=== PATIENT | female | born 1990 | race Caucasian/White ===

== ENCOUNTER 2020-08-06 02:23 | Emergency (ER) | payer SELFPAY ==
[2020-08-06 02:30] VITALS: BP 100/90; PULSE 133; RESP 18; TEMP 36.7; O2SAT 100
--- NOTE | 2020-08-06 02:45 | PC.NURSE ---
pt. denied having any ID when presented to [facility] consultant
[2020-08-06 02:58] LABS: Basophils Absolute Auto 0.1 K/mm3 (0.0-0.1); Basophils Percent Auto 0.4 % (0.2-1.2); Eosinophils Absolute Auto 0.1 K/mm3 (0-0.3); Eosinophils Percent Auto 0.4 % (0-4.4); Hematocrit 42.4 % (37.0-47.0); Hemoglobin 13.3 g/dL (12.0-15.0); Immature Granulocyte Absolute 0.08 K/mm3 (0.00-0.031); Immature Granulocyte Percent A 0.4 % (0-0.5); Lymphocytes Percent Auto 10.3 % (18.3-44.2); Mean Corpuscular HGB Conc 31.4 g/dl (32-36); Mean Corpuscular Hemoglobin 25.7 pg (26-34); Mean Corpuscular Volume 81.9 fl (80-100); Mean Platelet Volume 8.6 fl (7.4-10.4); Monocytes Absolute Auto 1.3 K/mm3 (0.1-0.6); Monocytes Percent Auto 7.2 % (2.6-8.5); Neutrophils Absolute Auto 15.1 K/mm3 (1.3-6.7); Neutrophils Percent Auto 81.3 % (45.5-73.1); Platelet Count Result 449 k/mm3 (150-375); Red Blood Count 5.18 M/mm3 (4.2-5.4); Red Cell Distribution Width 14.6 % (11.5-14.5); White Blood Count 18.5 K/mm3 (4.5-10.0)
[2020-08-06 03:09] LABS: Alanine Aminotransferase 46 U/L (4-35); Albumin Level 4.1 g/dL (3.5-5.1); Alkaline Phosphatase 134 U/L (38-126); Anion Gap 11 mmol/L (8-16); Aspartate Amino Transferase 49 U/L (14-36); Bilirubin,Total 0.6 mg/dL (0.2-1.3); Blood Urea Nitrogen 16 mg/dL (7-17); Calcium 9.4 mg/dL (8.4-10.2); Carbon Dioxide 27 mmol/L (22-30); Chloride 100 mmol/L (98-107); Estimated CRCL calculation 78 ml/min; Estimated Glomerular Filt Rate > 60; Glucose 130 mg/dL (65-105); Potassium 4.2 mmol/L (3.4-5.0); Sodium 138 mmol/L (137-145)
--- NOTE | 2020-08-06 03:31 | ED.GENADULT ---
HPI - General Adult General Chief complaint: Extremity Injury, Lower Stated complaint: R leg pain Time Seen by Provider: 08/06/20 02:36 History of Present Illness HPI narrative: Patient is a 30-year-old female who presents to the emergency department with chief complaint of right leg pain. Patient reports she has prior history of a blood clot in her lower extremities and had a surgical procedure on it in [place]. The patient states that tonight she started having pain in the area and noticed there was some swelling patient reported she had been off of her blood thinners for about 2 weeks and just recently restarted them. Patient denies chest pain denies shortness of breath denies fever or chills does report that she is a little bit of a headache. The patient denies any focal neurological deficits. Review of Systems Review of Systems: Narrative: CONSTITUTIONAL: Denies fever, chills, or sweats. EYES: Denies visual changes, redness, or discharge. ENT: Denies rhinorrhea, congestion, sore throat, or otalgia. CARDIOVASCULAR: Denies chest pain, palpitations, or edema. RESPIRATORY: Denies cough or dyspnea. GASTROINTESTINAL: Denies abdominal pain, nausea, vomiting, or diarrhea. GENITOURINARY: Denies dysuria or hematuria. SKIN: Denies rash or itching. MUSCULOSKELETAL: Denies back pain, joint pain, or myalgia. NEUROLOGIC: Denies headache, numbness, or weakness. PSYCHIATRIC: Denies anxiety or depression. A 10 system review of systems was completed on the patient and is negative except for what is stated in the HPI. Nursing and ancillary documentation was reviewed. PMFSH Comments Surgical procedure on the left lower extremity with clot removal Social history patient smokes cigarettes, the patient reports to methamphetamine use 4 days ago Exam Narrative: Exam Narrative: GENERAL: Well-appearing, well-nourished, and in no acute distress. HEAD: Normocephalic, atraumatic. EYES: PERRLA and EOMI. ENT: Nares clear, no rhinorrhea or epistaxis. Mucous membranes moist. NECK: Supple. CHEST: Clear to auscultation. No respiratory distress. HEART: Regular rate and rhythm. No murmur heard. Normal peripheral pulses. ABDOMEN: Soft, nontender, nondistended, normal active bowel sounds. EXTREMITIES: Normal range of motion. No edema. There are intact dorsalis pedis pulses in the right lower extremity. There is a scar on the lateral aspect of the right lower extremity inferior to the knee there is tenderness to palpation the skin there is no surrounding erythema there is no fluctuance. SKIN: Warm, dry, no rash. NEURO: No focal deficits. Alert and oriented x3. PSYCH: Normal mood and affect. Course Vital Signs Vital signs: Vital Signs Temperature 36.7 C 08/06/20 02:30 Pulse Rate 133 H 08/06/20 02:30 Respiratory Rate 18 08/06/20 02:30 Blood Pressure 100/90 08/06/20 02:30 Pulse Oximetry 100 08/06/20 02:30 Temperature 36.6 C 08/06/20 03:37 Pulse Rate 120 H 08/06/20 03:37 Respiratory Rate 16 08/06/20 03:37 Blood Pressure 103/62 08/06/20 03:37 Pulse Oximetry 100 08/06/20 03:37 Medical Decision Making Vital Signs Vital Signs: Vital Signs Temperature 36.7 C 08/06/20 02:30 Pulse Rate 133 H 08/06/20 02:30 Respiratory Rate 18 08/06/20 02:30 Blood Pressure 100/90 08/06/20 02:30 Pulse Oximetry 100 08/06/20 02:30 Temperature 36.6 C 08/06/20 03:37 Pulse Rate 120 H 08/06/20 03:37 Respiratory Rate 16 08/06/20 03:37 Blood Pressure 103/62 08/06/20 03:37 Pulse Oximetry 100 08/06/20 03:37 Lab Data Result diagrams: 08/06/20 02:49 08/06/20 02:49 Labs: Lab Results 08/06/20 08/06/20 08/06/20 Range/Units 02:49 02:49 02:49 WBC 18.5 H (4.5-10.0) K/mm3 RBC 5.18 (4.2-5.4) M/mm3 Hgb 13.3 (12.0-15.0) g/dL Hct 42.4 (37.0-47.0) % MCV 81.9 (80-100) fl MCH 25.7 L (26-34) pg MCHC 31.4 L (32-36) g/dl RDW 14.6 H (11.5-14.5) %
[2020-08-06 03:36] LABS: Prothrombin Time 13.9 Seconds (11.1-14.7)
[2020-08-06 03:37] VITALS: BP 103/62; PULSE 120; RESP 16; TEMP 36.6; O2SAT 100
[2020-08-06 03:37] LABS: Partial Thromboplastin Time 34.6 SECONDS (22.3-36.8)
[2020-08-06 03:39] LABS: D Dimer 0.68 ug/mL (<0.48)
[2020-08-06 04:06] VITALS: BP 110/74; PULSE 115; RESP 16; O2SAT 100
== END 2020-08-06 04:12 | disposition home or self-care (01) ==
PROVIDERS: Emergency Provider Emergency Medicine
DX: M79.604 Pain in right leg (principal); F17.210 Nicotine dependence, cigarettes, uncomplicated; Z79.01 Long term (current) use of anticoagulants
CPT/HCPCS: 36415; 80053; 85025; 85380; 85610; 85730; 99283

== ENCOUNTER 2020-08-06 12:15 | Outpatient (CLI) | payer SELFPAY ==
--- NOTE | ~2020-08-06 | US_ITS ---
EXAMINATION: US venous doppler LE RT DATE: 08/06/2020 12:54 INDICATION: Right lower limb pain TECHNIQUE: Grayscale ultrasound images without and with compression and Doppler ultrasound images of the right lower extremity veins were obtained. COMPARISON: None. FINDINGS: The visualized portions of right common femoral vein, profunda (deep) femoral vein, femoral vein, pop liteal vein, peroneal trunk, posterior tibial veins, peroneal veins, gastrocnemius vein and greater s aphenous vein outflow are patent. There is a 4.3 x 2.1 x 2.6 cm anechoic fluid collection along the d eep margin of a surgical scar at the medial side of the knee. No internal flow or surrounding hyperem ia on color Doppler. There is right inguinal lymphadenopathy with a couple mildly enlarged lymph node s measuring up to 1.0 and 1.4 cm in maximal short axis diameters. IMPRESSION: 1. No deep venous thrombosis in the right lower limb. 2. 4.3 x 2.1 x 2.6 cm anechoic fluid collection along the deep margin of the surgical scar at the med ial side of the right knee which which could represent either residual postoperative seroma or potent ially a ganglion cyst arising from the knee joint. No surrounding hyperemia to suggest abscess althou gh this would be included in the differential in the appropriate clinical setting. 3. Mild right inguinal lymphadenopathy which is likely reactive. Reviewed, dictated and finalized at location [facility] IMPRESSION: 1. No deep venous thrombosis in the right lower limb. 2. 4.3 x 2.1 x 2.6 cm anechoic fluid collection along the deep margin of the smith rgical scar at the medial side of the right knee which which could represent ei ther residual postoperative seroma or potentially a ganglion cyst arising from the knee joint. No surrounding hyperemia to suggest abscess although this would be included in the differential in the appropriate clinical setting. 3. Mild right inguinal lymphadenopathy which is likely reactive.
== END 2020-08-06 12:16 | disposition home or self-care (01) ==
PROVIDERS: Visit Provider Family Medicine
DX: M79.661 Pain in right lower leg (principal); R59.1 Generalized enlarged lymph nodes
CPT/HCPCS: 93971

== ENCOUNTER 2020-08-06 14:01 | Emergency (ER) | payer SELFPAY ==
[2020-08-06 14:03] VITALS: BP 114/65; PULSE 122; RESP 18; TEMP 36.6; O2SAT 100
[2020-08-06 15:11] VITALS: BP 113/61; PULSE 111; RESP 18; O2SAT 100
--- NOTE | 2020-08-06 15:19 | PC.NURSE ---
Pt in triage eating [employer] saying she is in so much fn pain and that her pain is off the charts. I informed pt that she shouldn't be eating anything and pt states You dont care about my pain I dont care that I shouldn't eat. Pt continued to eat entire meal while saying she was in extreme pain.
[2020-08-06 17:13] LABS: Add Urine Microscopic? YES; Amorphous Sediment Urine Few; Appearance Urine Cloudy (Clear); Bilirubin Urine Negative (Negative); Blood Urine Negative (Negative); Color Urine Yellow (Yellow); Glucose Urine UA Negative (Negative); Ketones Urine Negative (Negative); Leukocyte Esterase Ur Trace LEU/UL (Negative); Mucus Urine Rare /lpf; Nitrate Urine Negative (Negative); Protein Urine 1+ mg/dL (Negative); Specific Grav Ur 1.016 (1.001-1.035); Squamous Epithelial Cell Urine Rare /hpf (Few); Urobilinogen Urine Negative mg/dL (<2.0)
--- NOTE | 2020-08-06 17:18 | ED.GENADULT ---
HPI - General Adult General Chief complaint: Extremity Injury, Lower Stated complaint: right leg pain/US sent here Time Seen by Provider: 08/06/20 16:12 Source: patient Mode of arrival: ambulatory Limitations: no limitations History of Present Illness HPI narrative: Patient is a 30-year-old female who presents to emergency department for evaluation of tenderness and swelling along the right medial incision line from a vascular surgery she had performed 3 months ago patient presented last night with pain in this location was discharged home with planned ultrasound in the morning. Patient notes aching pain denies injury or trauma patient notes that she has never followed up with her surgeon never is followed up with primary care does note history of IV drug abuse currently admits to continued drug use patient denies fever vomiting URI symptoms or other complaints presents in no distress Related Data Allergies Allergy/AdvReac Type Severity Reaction Status Date / Time No Known Allergies Allergy Verified 08/06/20 18:02 Review of Systems Review of Systems: All systems reviewed & are unremarkable except as noted in HPI and below PMFSH Past Medical History Medical History IV drug abuse Surgical History Surgical History (Updated 08/06/20 @ 18:34 by Enmanuel Bowens PA-C) H/O vascular surgery Social History Social History (Updated 08/06/20 @ 18:34 by Enmanuel Bowens PA-C) Smoking status: Current every day smoker Exam Narrative: Exam Narrative: GENERAL: Well-appearing, well-nourished, and in no acute distress. HEAD: Normocephalic, atraumatic. EYES: PERRLA and EOMI. ENT: Nares clear, no rhinorrhea or epistaxis. Mucous membranes moist. CHEST: Clear to auscultation. No respiratory distress. No wheezes rales or rhonchi HEART: Regular rate and rhythm. No murmur heard. Normal peripheral pulses. EXTREMITIES: Normal range of motion. No edema. Patient with tenderness and swelling along the medial right knee where she has well approximated incision line that is fluctuant boggy with slight erythema no warmth no lymphangitic streaking remainder of extremity nontender no deformity SKIN: Warm, dry, no rash. NEURO: No focal deficits. Alert and oriented x3. Cranial nerves II through XII grossly intact. Neurovascularly intact. Capillary refill less than 2 seconds PSYCH: Normal mood and affect. Course Course Emergency Course: Patient being evaluated in the emergency department noting that she wants to leave without receiving any further evaluation is refusing any blood draw will sign out AMA documentation patient advised that she should stay but however notes she wants to leave and is refusing any further care at this time Vital Signs Vital signs: Vital Signs Temperature 97.9 F 08/06/20 14:03 Pulse Rate 122 H 08/06/20 14:03 Respiratory Rate 18 08/06/20 14:03 Blood Pressure 114/65 08/06/20 14:03 Pulse Oximetry 100 08/06/20 14:03 Temperature 97.9 F 08/06/20 14:03 Pulse Rate 111 H 08/06/20 15:11 Respiratory Rate 18 08/06/20 15:11 Blood Pressure 113/61 08/06/20 15:11 Pulse Oximetry 100 08/06/20 15:11 Procedures Other Procedure Procedure 1: Other Procedure: Patient had a soap scrub performed for 5 minutes with 18-gauge needle used to aspirate the lesion which only revealed blood no purulent drainage likely suggesting a seroma Medical Decision Making MDM Narrative Medical decision making narrative: Patients injury or pain is consistent with musculoskeletal etiology. No signs of neurological or vascular compromise on exam. Compartments and tisues are soft without signs of compartment syndrome. Patient refused to have any further evaluation it is felt that is likely a seroma given that there was no purulent drainage no fever however difficult to rule out without the patient allowing further evaluation which she will not, she will sign out AMA. Patient will be sent home with antibiotics
[2020-08-06 17:32] LABS: Barbiturate Screen Urine Negative (Negative); Benzodiazepines Screen Urine Negative (Negative)
[2020-08-06 17:39] LABS: Cannabinoid Screen Urine Positive (Negative); Cocaine Screen Urine Negative (Negative); Methadone Screen Urine Negative (Negative); Opiate Screen Urine Negative (Negative); Phencyclidine Screen Urine Negative (Negative)
[2020-08-06 18:03] LABS: Amphetamine Screen Urine Positive (Negative)
--- NOTE | 2020-08-06 18:15 | PC.NURSE ---
PT REQUESTING TO LEAVE NOT WANTING TO BE STUCK FOR LABS/IV
== END 2020-08-06 18:50 | disposition left against medical advice (07) ==
PROVIDERS: Emergency Medicine Emergency Medical Services; Emergency Provider Emergency Medicine
DX: L98.8 Other specified disorders of the skin and subcutaneous tissue (principal); F19.10 Other psychoactive substance abuse, uncomplicated; F17.210 Nicotine dependence, cigarettes, uncomplicated; Z98.890 Other specified postprocedural states
CPT/HCPCS: 10160; 80307; 81001; 99283; J7030